=== PATIENT | male | born 1935 | race Caucasian/White ===

== ENCOUNTER 2016-08-18 09:44 | Outpatient (CLI) | payer MEDICARE, OTHER ==
[~2016-08-18 09:44] MED LIST: ATEN25TA PO; BROM2.5T3 PO; BUPR100T6 PO; LOSA25TA13 PO; SIMV40TA5 PO; TEST75GE TP; VIT500LI PO
[2016-08-18 11:27] LABS: EOSINOPHILS # (AUTO) 0.1 /CMM (0.0-0.7)
[2016-08-18 11:29] LABS: BASOPHILS % (AUTO) 0.3 % (0.0-2.0); EOSINOPHILS % (AUTO) 1.5 % (0.0-6.0); HEMATOCRIT 43 % (39-51); HEMOGLOBIN 14.4 g/dL (13.5-17.5); LYMPHOCYTES # (AUTO) 1.8 /CMM (0.8-4.8); LYMPHOCYTES % (AUTO) 24.9 % (20.0-44.0); MEAN CORPUSCULAR HEMOGLOBIN 30 PG (26.0-33.0); MEAN CORPUSCULAR HGB CONC 34 g/dl (31.0-36.0); MEAN CORPUSCULAR VOLUME 90 fL (80-96); MONOCYTES # (AUTO) 0.9 /CMM (0.1-1.30); MONOCYTES % (AUTO) 12.4 % (2.0-12.0); NEUTROPHILS # (AUTO) 4.5 /CMM (1.8-8.9); NEUTROPHILS % (AUTO) 60.9 % (43.0-81.0); PLATELET COUNT (AUTO) 183 /CMM (150-450); RDW COEFFICIENT OF VARIATION 13.8 (11.5-15.0); RED BLOOD CELL COUNT(AUTO) 4.75 MIL/uL (4.5-6.0); WHITE BLOOD COUNT (AUTO) 7.4 K/uL (4.3-11.0)
== END 2016-08-18 23:59 | disposition home or self-care (01) ==
LOC: NM 09:44
DX: Z96.652 Presence of left artificial knee joint (principal)
CPT/HCPCS: 36415; 78315; 85025; 85652; 86140; A9503

== ENCOUNTER 2020-06-03 22:07 | Inpatient (IN) | payer MEDICARE, OTHER ==
[~2020-06-03] VITALS: Ht 180.3 cm; Wt 72.6 kg
[~2020-06-03 22:07] MED LIST changes: +BROM2.5T15 PO; -BROM2.5T3 PO; -LOSA25TA13 PO; +LOSA25TA27 PO; +SIMV-49 PO; -SIMV40TA5 PO
--- NOTE | 2020-06-03 22:30 | NUR ---
PT BIBSELF C/O FEVER X1 DAY. DENIES COUGH, SOB, NAUSEA, VOMITTING, LOSS OF TASTE/SMELL, OR RECENT EXPOSURE TO COVID. PT AAOX4. FEBRILE ON ARRIVAL. O2 SAT 96% ROOM AIR. RESPIRATIONS EVEN AND UNLABORED. SKIN WARM AND INTACT. AMBULATORY WITH STEADY GAIT. NO ACUTE DISTRESS NOTED AT THIS TIME. WILL CONTINUE TO MONITOR
[2020-06-03] MEDS ORDERED: ACETAMINOPHEN ES 500 MG TABLET ONE (22:59)
[2020-06-03] MEDS ORDERED: ACETAMINOPHEN ES 500 MG TABLET PO ONE (23:00)
--- NOTE | 2020-06-03 23:00 | NUR ---
IV INITIATED L FOREARM 18G. LABS DRAWN FROM SITE. CROWN BUFFER AT BEDSIDE FOR COLLECTION. IV INTACT AND PATENT, PLACED ON SALINE LOCK
--- NOTE | 2020-06-03 23:00 | NUR ---
COVID AND FLU SWAB COLLECTED AND SENT TO LAB
--- NOTE | 2020-06-03 23:01 | NUR ---
URINE COLLECTED AND SENT TO LAB
--- NOTE | 2020-06-03 23:10 | NUR ---
RADIOLOGY AT BEDSIDE FOR CXR
[2020-06-03 23:16] LABS: BASOPHILS % (AUTO) 0.2 % (0.0-2.0); EOSINOPHILS % (AUTO) 0.4 % (0.0-6.0); HEMATOCRIT 45 % (39-51); HEMOGLOBIN 15.1 g/dL (13.5-17.5); LYMPHOCYTES # (AUTO) 0.4 /CMM (0.8-4.8); LYMPHOCYTES % (AUTO) 3.7 % (20.0-44.0); MEAN CORPUSCULAR HGB CONC 33 g/dl (31.0-36.0); MEAN CORPUSCULAR VOLUME 92 fL (80-96); MONOCYTES # (AUTO) 0.7 /CMM (0.1-1.30); MONOCYTES % (AUTO) 5.9 % (2.0-12.0); NEUTROPHILS # (AUTO) 10.1 /CMM (1.8-8.9); NEUTROPHILS % (AUTO) 89.8 % (43.0-81.0); PLATELET COUNT (AUTO) 134 /CMM (150-450); RED BLOOD CELL COUNT(AUTO) 4.93 MIL/uL (4.5-6.0); WHITE BLOOD COUNT (AUTO) 11.3 K/uL (4.3-11.0)
[2020-06-03 23:25] LABS: BILIRUBIN,URINE Negative (NEGATIVE); COLOR,URINE YELLOW (YELLOW); LEUKOCYTE ESTERASE ,URINE Negative (NEGATIVE); NITRITE, URINE Negative (NEGATIVE); PROTEIN,URINE Negative (NEGATIVE); UGLUCOSE Negative (NEGATIVE); UROBILINOGEN,URINE 0.2 EU/dL (0.2)
[2020-06-03 23:27] LABS: CALCIUM, SERUM 8.7 mg/dL (8.5-10.1); CARBON DIOXIDE 24 mmol/L (21-32); CHLORIDE 105 mmol/L (98-107); CREATININE 1.7 mg/dL (0.6-1.3); GLUCOSE 94 mg/dL (74-106); POTASSIUM 3.9 mmol/L (3.5-5.1); SODIUM SERUM 138 mmol/L (136-145); UREA NITROGEN, BLOOD 23 mg/dL (7-18)
[2020-06-03 23:38] LABS: ALANINE AMINOTRANSFERASE 22 U/L (12-78); ALBUMIN 3.7 g/dL (3.4-5.0); ALKALINE PHOSPHATASE 82 U/L (46-116); ASPARTATE AMINOTRANSFERASE 22 U/L (15-37); B-TYPE NATRIURETIC PEPTIDE 467 PG/ML (0-125); BILIRUBIN,TOTAL 0.8 mg/dL (0.2-1.0); TOTAL PROTEIN, SERUM 6.5 g/dL (6.4-8.2)
[2020-06-03 23:50] LABS: D-DIMER 5.27 mg/L(FEU (0.17-0.50)
--- NOTE | 2020-06-03 23:51 | NUR ---
Call from lab, rapid covid negative.
[2020-06-04 00:09] LABS: CREATINE KINASE, TOTAL 77 U/L (39-308); FERRITIN 76 ng/mL (8-388)
[2020-06-04] MEDS ORDERED: IV NS 0.9% 1,000 ML BAG IV ONE (00:30)
[2020-06-04] MEDS ORDERED: ACETAMINOPHEN 325 MG TABLET PO PRN (02:00)
[2020-06-04] MEDS ORDERED: ONDANSETRON HCL/PF 4 MG/2 ML VIAL IVP PRN (02:00)
[2020-06-04] MEDS ORDERED: CEFTRIAXONE 1 G in IV D5W 50 ML IV SCH (02:00)
[2020-06-04] MEDS ORDERED: ALBUTEROL SULFATE 8 GM HFA.AER.AD IH PRN (02:00)
[2020-06-04] MEDS ORDERED: CEFTRIAXONE 1GM BAG (ER ONLY) 50 ML IV ONE (02:34)
[2020-06-04] MEDS ORDERED: [UNRECOGNIZED DRUG - CODE] PO (07:41)
[2020-06-04] MEDS ORDERED: CHOL100040 PO (07:41)
[2020-06-04] MEDS ORDERED: UBID100C13 PO (07:41)
[2020-06-04] MEDS ORDERED: ASPI-1169 PO (07:41)
[2020-06-04] MEDS ORDERED: SILD100T70 PO (07:41)
[2020-06-04] MEDS ORDERED: Super Beta Prostate PO (07:41)
[2020-06-04] MEDS ORDERED: TURM500C9 PO (07:41)
[2020-06-04] MEDS ORDERED: LINOLEIC ACID PO (07:41)
[2020-06-04] MEDS ORDERED: MULT-1119 PO (07:41)
[2020-06-04] MEDS ORDERED: OMEP20CA15 PO (07:41)
[2020-06-04] MEDS ORDERED: FISH1CAP16 PO (07:41)
[2020-06-04] MEDS ORDERED: GLUC100017 PO (07:41)
[2020-06-04] MEDS ORDERED: ATOR40TA PO (07:41)
[2020-06-04] MEDS ORDERED: ASCO500T87 PO (07:41)
--- NOTE | 2020-06-04 08:08 | NUR ---
Patient does not wish to proceed with medical care recommended by Dr. Daniele Arceo. Patient given information related to possible complications, up to and including , which could occur as a result of leaving the hospital at this time. Patient verbalizes understanding of risks involved due to leaving against medical advice. Patient has signed AMA form.
[2020-06-04] MEDS ORDERED: DOXYCYCLINE HYCLATE (100 MG) 100 MG TABLET PO SCH (09:00)
[2020-06-04 09:05] VITALS: BP 150/75
[2020-06-04] MEDS ORDERED: ASPIRIN 81 MG TAB.CHEW PO SCH (10:00)
[2020-06-04] MEDS ORDERED: IV NS 0.9% 1,000 ML IV PRN (10:00)
== END 2020-06-04 08:08 | disposition left against medical advice (07) | DRG 684 ==
LOC: ER 22:07 → TRANSITION 06-04 00:19
PROVIDERS: ADMIT Nurse Practitioner Acute Care; ATTEND Nurse Practitioner Acute Care
DX: N17.9 Acute kidney failure, unspecified (principal); Z95.5 Presence of coronary angioplasty implant and graft; I25.10 Atherosclerotic heart disease of native coronary artery without angina pectoris; I48.91 Unspecified atrial fibrillation; I10 Essential (primary) hypertension; M19.90 Unspecified osteoarthritis, unspecified site; Z88.0 Allergy status to penicillin; Z79.899 Other long term (current) drug therapy; I70.0 Atherosclerosis of aorta; Z79.02 Long term (current) use of antithrombotics/antiplatelets; Z79.82 Long term (current) use of aspirin; Z95.2 Presence of prosthetic heart valve
CPT/HCPCS: 36415; 71045-TC; 80053-TC; 82550-TC; 82728-TC; 83605-TC; 83615-TC; 83880; 84484-TC; 85025-TC; 85378-TC; 85730-TC; 86140-TC; 87040-TC; 87086-TC; C9803; G0378; J0696; J2405; J7040; J7060; U0003